=== PATIENT | female | born 1970 | race Two or more races ===

== ENCOUNTER 2016-03-22 15:09 | Emergency (ER) | payer OTHER ==
[2016-03-22 15:53] VITALS: BMI 25.0
--- NOTE | 2016-03-22 16:47 | PDOC ---
History of Present Illness - General Chief Complaint: Cold Symptoms Stated Complaint: FEVER, HEADACHE, COUGH Time Seen by Provider: 03/22/16 16:36 History Source: Patient Exam Limitations: No Limitations - History of Present Illness Initial Comments: CHIEF COMPLAINT: 45 y/o febrile, tachycardic female with no significant PMH c/ o fever, body aches, non productive cough for the past 2 days. HISTORY OF PRESENT ILLNESS: The patient states she's been symptomatic since tuesday night. She also has a runny nose and nasal congestion. She has been taking 200mg of motrin every 8 hours for fever. She did not receive the flu shot this year. She denies KIMBLE, neck pain, n/v/d, CP, SOB, abd pain, back pain, hematuria, dysuria. Pt is a non smoker Vital signs on arrival are notable for pulse of 121 secondary to temp of 101.1. REVIEW OF SYSTEMS: GENERAL/CONSTITUTIONAL: + fever/chills. No weakness. No weight change. HEAD, EYES, EARS, NOSE AND THROAT: No change in vision. No ear pain or discharge. No sore throat. +runny nose and nasal congestion CARDIOVASCULAR: No chest pain or shortness of breath. RESPIRATORY: +dry cough. No wheezing, or hemoptysis. GASTROINTESTINAL: No abd pain, nausea, vomiting, diarrhea. GENITOURINARY: No dysuria, frequency, or change in urination. MUSCULOSKELETAL: No joint or muscle swelling or pain. No neck or back pain. SKIN: No rash or easy bruising. NEUROLOGIC: No headache, vertigo, loss of consciousness, or loss of sensation. PSYCHIATRIC: No depression or anxiety. ENDOCRINE: No increased thirst. No abnormal weight change. HEMATOLOGIC/LYMPHATIC: No anemia, easy bleeding, or history of blood clots. ALLERGIC/IMMUNOLOGIC: No hives or skin allergy. No latex allergy. PHYSICAL EXAM: GENERAL: The patient is awake, alert, and fully oriented, in no acute distress. She is non toxic but ill appearing with obvious nasal congestion. HEAD: Normal with no signs of trauma. ENT: Pupils equal, round and reactive to light, extraocular movements intact, sclera anicteric, conjunctiva clear. Neck supple. Nasal congestion. LUNGS: Clear to auscultation bilaterally. Normal excursion. No respiratory distress or use of accessory muscles. CV: Rapid rate, regular rhythm. S1/S2, no MRG. Cap refill < 2 sec. ABDOMEN: Soft, non-distended, non-tender even to deep palpation, no hepatomegaly or splenomegaly, no masses. EXTREMITIES: Normal range of motion, no edema. NEUROLOGICAL: Normal speech, normal gait. CN II-XII grossly intact. PSYCH: Normal mood, normal affect. SKIN: Warm, dry, normal turgor, no rashes or lesions noted. Past History - Past Medical History Allergies/Adverse Reactions: Allergies Allergy/AdvReac Type Severity Reaction Status Date / Time prochlorperazine edisylate Allergy Swelling Verified 03/22/16 15:49 [From Compazine] Home Medications: Ambulatory Orders NK [No Known Home Medication] 03/22/16 Anemia: No Asthma: No COPD: No GI Disorders: Yes (gerd) Hypercholesterolemia: Yes (borderline) - Psycho/Social/Smoking Cessation Hx Anxiety: No Suicidal Ideation: No Smoking Status: No Smoking History: Never smoked Have you smoked in the past 12 months: No Number of Cigarettes Smoked Daily: 0 Information on smoking cessation initiated: No Hx Alcohol Use: No Drug/Substance Use Hx: No Substance Use Type: None *Physical Exam - Vital Signs Last Vital Signs Temp Pulse Resp BP Pulse Ox 101.1 F H 121 H 19 113/64 98 03/22/16 15:50 03/22/16 15:50 03/22/16 15:50 03/22/16 15:50 03/22/16 15:50 Medical Decision Making - Medical Decision Making A/P: 45 y/o febrile, tachycardic female with signs and symptoms of the flu. Plan is as follows: 1. PO tylenol 2. PO fluids 3. Influenza Influenza A&B - negative The patient states she feels better. SHe is no longer febrile or tachycardic. Will d/c to home with dx of viral uri. Suggested she take either 650mg of tylenol every 4 hours or 600mg of advil every 6 hours for fever. Instructed her to drink plenty of fluids, get plenty of rest and f/u with Dr. Perez if no improvement in symptoms in 3 days. Instructed her to return to the ER with any worsening or concerning symptoms. The patient verbalizes understanding of all instructions, has no further questions and is awaiting discharge. *DC/Admit/Observation/Transfer Diagnosis at time of Disposition: URI (upper respiratory infection) - Discharge Dispostion Disposition: HOME Condition at time of disposition: Improved - Referrals Referrals: Marcin Perez MD [Primary Care Provider] - Call tomorrow - Patient Instructions Printed Discharge Instructions: DI for Viral Upper Respiratory Infection -- Adult Additional Instructions: Discharge INstructions: -Take 650mg of Tylenol every 4 hours OR 600mg of Advil every 6 hours for fever -Drink plenty of fluids -Get plenty of rest -Follow up with Dr. Perez if no improvement in symptoms in 3 days. -REturn to the ER with any worsening or concerning symptoms - Post Discharge Activity Work/School Note: Back to Work
[2016-03-22] MEDS ORDERED: ACETAMINOPHEN 325 MG TABLET (FP) PO ONE (16:48)
[2016-03-22] MEDS ORDERED: ACETAMINOPHEN 325 MG TABLET (FP) ONE (16:58)
[2016-03-22 18:36] VITALS: BP 98/49; PULSE 89; TEMP 99.4
== END 2016-03-22 19:12 | disposition home or self-care (01) ==
LOC: JER 15:09
DX: J06.9 Acute upper respiratory infection, unspecified (principal)
CPT/HCPCS: 84703; 87804; 99283-25

== ENCOUNTER 2018-06-18 13:41 | Emergency (ER) | payer OTHER ==
[2018-06-18 13:53] VITALS: BP 117/71; PULSE 77; TEMP 97.5; BMI 26.4
--- NOTE | 2018-06-18 14:43 | PDOC ---
History of Present Illness - General Chief Complaint: Nausea/Vomiting Stated Complaint: VOMITING Time Seen by Provider: 06/18/18 14:11 History Source: Patient Exam Limitations: No Limitations - History of Present Illness Initial Comments: 06/18/18 14:38 Patient came in with complaints subacute onset of headache pain across frontal region worse on the left than the right that started this morning. States felt mildly nauseous at the time some breakfast and had somewhat resolution. States then went out to do some grocery shopping but headache recurred and feelings of weakness. States then started vomiting. 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 States took one tablet of Tamiflu that she had left over from an influenza in the spring. No resolve of symptoms. Denies fever, denies any runny nose, cough or URI symptoms. Denies any recent head trauma or injury however has a lengthy history of similar type of headaches. This is not the worst headache of her life and in fact is classic to the type of headaches that she gets. Has seen a headache specialist who has given her some type of medication that she does not recall the name of for breakthrough pain. Patient denies this being "the worst headache of her life". Timing/Duration: reports: increasing, waxing and waning Severity: Yes: mild, moderate Associated Symptoms: reports: nausea/vomiting, weakness. denies: fever/chills, loss of consciousness Past History - Travel Traveled outside of the country in the last 30 days: No Close contact w/someone who was outside of country & ill: No - Past Medical History Allergies/Adverse Reactions: Allergies Allergy/AdvReac Type Severity Reaction Status Date / Time prochlorperazine edisylate AdvReac Verified 06/18/18 13:53 [From Compazine] Home Medications: Ambulatory Orders Ondansetron [Zofran *Odt*] 4 mg SL PRN PRN #14 od.tablet 06/18/18 Oseltamivir Phosphate [Tamiflu -] 75 mg PO DAILY 06/18/18 Anemia: No Asthma: No COPD: No GI Disorders: Yes (gerd) Hypercholesterolemia: Yes (borderline) Other medical history: migraines - Suicide/Smoking/Psychosocial Hx Smoking Status: No Smoking History: Never smoked Have you smoked in the past 12 months: No Number of Cigarettes Smoked Daily: 0 Information on smoking cessation initiated: No Hx Alcohol Use: No Drug/Substance Use Hx: No Substance Use Type: None Review of Systems - Review of Systems Able to Perform ROS?: Yes Is the patient limited Turkish proficient: Yes Constitutional: Yes: Symptoms Reported, See HPI, Fever, Malaise HEENTM: Yes: Symptoms Reported, See HPI, Eye Pain (mild photophobia). No: Blurred Vision, Ear Discharge, Throat Pain, Throat Swelling Respiratory: Yes: See HPI. No: Symptoms reported, Cough ABD/GI: Yes: Symptoms Reported, See HPI, Nausea, Vomiting. No: Constipated, Diarrhea, Abdominal cramping Musculoskeletal: Yes: Symptoms Reported, See HPI All Other Systems: Reviewed and Negative *Physical Exam - Vital Signs Last Vital Signs Temp Pulse Resp BP Pulse Ox 97.5 F L 77 16 117/71 100 06/18/18 13:42 06/18/18 13:42 06/18/18 13:42 06/18/18 13:42 06/18/18 13:42 - Physical Exam General Appearance: Yes: Nourished, Appropriately Dressed, Apparent Distress, Mild Distress, Moderate Distress (grimacing) HEENT: positive: JULIETA, Normal ENT Inspection, TMs Normal (no hemotympanum, some mild congestion but landmarks easily visualized), Pharynx Normal, Other (no reproduced ). negative: Sinus Tenderness (no reproduce tenderness along the frontal ethmoid or maxillary sinus areas.) Neck: positive: Supple. negative: Tender, Lymphadenopathy (R), Lymphadenopathy (L) Respiratory/Chest: positive: Lungs Clear, Normal Breath Sounds Gastrointestinal/Abdominal: positive: Normal Bowel Sounds, Soft. negative: Tender, Distended, Guarding, Rebound Musculoskeletal: positive: Normal Inspection. negative: CVA Tenderness Extremity: positive: Normal Inspection, Normal Range of Motion Integumentary: positive: Dry, Warm, Pale Neurologic: positive: band saw marker II-XII NML intact, Fully Oriented, Alert, Normal Mood/ Affect, Normal Response, Motor Strength 5/5 Progress Note - Progress Note Progress Note: Much improved after Zofran administration, able to tolerate by mouth fluids. And states headache is resolved. Will send home with Zofran prescription, encouraged to follow-up with neurologist to reevaluate possible breakthrough medications for headaches and rehydrate *DC/Admit/Observation/Transfer Diagnosis at time of Disposition: Gastroenteritis - Discharge Dispostion Disposition: HOME Condition at time of disposition: Stable Decision to Admit order: No - Referrals Referrals: Marcin Perez MD [Primary Care Provider] - - Patient Instructions Printed Discharge Instructions: DI for Viral Gastroenteritis -- Adult Additional Instructions: Rest, drink lots of fluids: Teas, water, soups Joanna gigi, carbonated beverages for the bubbles May try peppermint teas Avoid heavy , spicy or fatty foods until symptoms have resolved Avoid contact with others until fevers and symptoms resolved Lots of handwashing and good hygiene Continue [id number] medications for symptomatic relief Tylenol or Motrin for fever and pain May use Zofran-one tablet dissolved on tongue as needed for nauseousness. May repeat times one every 8 hours Followup with private physician in one to 2 days as needed Return to emergency department for worsened symptoms, fevers, dehydration - Post Discharge Activity Forms/Work/School Notes: Back to Work
[2018-06-18] MEDS ORDERED: ONDANSETRON *ODT* 4 MG TABLET SL ONE (14:44)
[2018-06-18] MEDS ORDERED: ONDANSETRON *ODT* 4 MG TABLET ONE (14:50)
== END 2018-06-18 15:36 | disposition home or self-care (01) ==
LOC: JERFT 13:41
DX: K52.9 Noninfective gastroenteritis and colitis, unspecified (principal)
CPT/HCPCS: 84703; 99281-25; Q0162

== ENCOUNTER 2022-11-11 19:02 | Emergency (ER) | payer OTHER ==
[2022-11-11 19:18] VITALS: PULSE 77; RESP 16; TEMP 99; BMI 25.4
[2022-11-11] MEDS ORDERED: ALBUTEROL SO4 2.5/IPRATROPIUM 0.5 INH SOL 3 ML VIAL.NEB. NEB ONE ×2 (19:44→19:47)
[2022-11-11 20:47] VITALS: BP 126/65
== END 2022-11-11 20:47 | disposition home or self-care (01) ==
LOC: FER 19:02
PROC: 3E0F7GC Introduction of Other Therapeutic Substance into Respiratory Tract, Via Natural or Artificial Opening (ICD-10-PCS; principal; 2022-11-11)
DX: J40 Bronchitis, not specified as acute or chronic (principal); J32.9 Chronic sinusitis, unspecified; R50.9 Fever, unspecified; R51.9 Headache, unspecified; R05.9 Cough, unspecified
CPT/HCPCS: 99283-25